=== PATIENT | female | born 1940 | race Caucasian/White ===

== ENCOUNTER 2019-05-27 12:33 | Outpatient (CLI) | payer MEDICARE, OTHER ==
--- NOTE | 2019-05-27 13:38 | BD ---
EXAM: DEXA bone density examination HISTORY: 78-year-old postmenopausal female for screening COMPARISON: None FINDINGS: L1--bone mineral density 0.780 g/sq cm; T score -1.9 L2--bone mineral density 0.775 g/sq cm; T score -2.3 L3--bone mineral density 0.912 g/sq cm; T score -1.6 L4--bone mineral density 0.946 g/sq cm; T score -1.0 Total L1-L4--bone mineral density 0.857 g/sq cm; T score -1.7 Left femoral neck--bone mineral density0.483; T score -3.3 Total proximal left femur--bone mineral density 0.609; T score -2.7 IMPRESSION: Osteoporosis
--- NOTE | 2019-06-02 09:32 | MMO ---
Bilateral MAMMO Bilat Screen [facility]. CLINICAL HISTORY: Patient is 78 years old and is seen for screening. The patient has no family history of breast cancer. The patient has no personal history of cancer. VIEWS: The views performed were: bilateral craniocaudal with tomosynthesis and bilateral mediolateral oblique with tomosynthesis. FILMS COMPARED: The present examination has been compared to prior imaging studies performed at [facility] on 10/07/2014, 05/16/2016 and 05/20/2018. MAMMOGRAM FINDINGS: There are scattered fibroglandular densities. There are benign appearing calcifications seen in the left breast. There are no suspicious masses, suspicious calcifications, or new areas of architectural distortion. IMPRESSION: THERE IS NO MAMMOGRAPHIC EVIDENCE OF MALIGNANCY. A ROUTINE FOLLOW-UP MAMMOGRAM IN 1 YEAR IS RECOMMENDED. THE RESULTS OF THIS EXAM WERE SENT TO THE PATIENT. ACR BI-RADS Category 2 - Benign finding MAMMOGRAPHY NOTE: 1. A negative mammogram report should not delay a biopsy if a dominant of clinically suspicious mass is present. 2. Approximately 10% to 15% of breast cancers are not detected by mammography. 3. Adenosis and dense breasts may obscure an underlying neoplasm. Reported by: LUIS ALBERTO ARMENDARIZ MD Electonically Signed: [id number]
== END 2019-05-27 12:34 | disposition home or self-care (01) ==
LOC: BICMAMMO 12:33
PROVIDERS: ATTEND Internal Medicine
DX: Z12.31 Encounter for screening mammogram for malignant neoplasm of breast (principal); M85.80 Other specified disorders of bone density and structure, unspecified site; M81.0 Age-related osteoporosis without current pathological fracture
CPT/HCPCS: 77063; 77067; 77080

== ENCOUNTER 2019-08-26 08:42 | Outpatient (CLI) | payer MEDICARE, OTHER ==
--- NOTE | 2019-08-27 15:22 | CT ---
CT OF THE CHEST, ABDOMEN AND PELVIS WITH IV CONTRAST INDICATION: History of lymphoma COMPARISON: CT of the chest, abdomen and pelvis from [facility] dated February 05, 2019. The report from the study was unavailable. FINDINGS: Patient respiratory motion artifact slightly limits image detail. CHEST: Lungs: There is scattered moderate emphysema. There are areas of mild scarring or persistent subsegme ntal volume loss within the right middle lobe. No suspicious pulmonary nodule is demonstrated. Pleural space: No effusion. Mediastinum: There is contrast seen within the distal esophagus. There is a small hiatal hernia. 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 There coronary artery and thoracic aortic calcifications. No pathologically enlarged lymph nodes are seen within the mediastinu m or hilar regions. Axilla: No pathologically enlarged lymph nodes. ABDOMEN: Liver: No focal lesion. Gallbladder: Normal appearing. Pancreas: Normal. Adrenal glands: Normal. Spleen: Normal. The spleen measures 9.3 cm. Kidneys and ureters: Normal. No hydronephrosis. Vasculature: There are severe vascular calcifications seen involving the visualized vasculature. Lymph nodes:No lymphadenopathy. Free fluid in abdomen:No free fluid is evident. PELVIS: Small and large bowel: There is a moderate amount retained stool within the colon. Small bowel is nor mal in caliber. Appendix:Normal Bladder: Normal. Rectal and perirectal soft tissues:Normal. Reproductive structures: Normal. Free fluid in pelvis: No free fluid is evident. Lymphadenopathy pelvis: No lymphadenopathy is evident. Osseous structures: There is healed fracture deformity involving the right pubic body. There there is stable chronic wedge compression fracture of L1. The central endplate compression abnormalities of L4 and L3 appear similar. There is a new interval, age indeterminate moderate wedge compression fract ure of T11 with approximately 50% loss of height. There is moderate internal trabecular sclerosis within the fracture which may reflect some healing. There is scattered degenerative and osteoarthrit ic changes. Thoracolumbar scoliotic curvature is similar appearing. Soft tissues:Normal. IMPRESSION: 1. No pathologically enlarged lymph nodes or splenomegaly identified. 2. Interval moderate wedge compression fracture of T11. Stable chronic compression abnormalities of L 1, L3 and L4. 3. Stable emphysema. 4. Enteric contrast within the esophagus can be seen with reflux or esophageal dysmotility. There is a small hiatal hernia.
== END 2019-08-26 08:43 | disposition home or self-care (01) ==
LOC: SCSCT 08:42
PROVIDERS: ATTEND Internal Medicine Hematology & Oncology
DX: C83.09 Small cell B-cell lymphoma, extranodal and solid organ sites (principal); J43.9 Emphysema, unspecified; K44.9 Diaphragmatic hernia without obstruction or gangrene; S22.080A Wedge compression fracture of T11-T12 vertebra, initial encounter for closed fracture; R93.7 Abnormal findings on diagnostic imaging of other parts of musculoskeletal system
CPT/HCPCS: 71260; 74177; 82565

== ENCOUNTER 2020-06-02 10:01 | Outpatient (CLI) | payer MEDICARE, OTHER ==
--- NOTE | 2020-06-02 13:12 | MMO ---
Bilateral MAMMO Bilat Screen [facility]. CLINICAL HISTORY: Patient is 79 years old and is seen for screening. The patient has no family history of breast cancer. The patient has no personal history of cancer. VIEWS: The views performed were: bilateral craniocaudal with tomosynthesis and bilateral mediolateral oblique with tomosynthesis. FILMS COMPARED: The present examination has been compared to prior imaging studies performed at [facility] on 05/27/2019, and at [facility] on 10/07/2014, 05/16/2016 and 05/20/2018. This study has been interpreted with the assistance of computer-aided detection. MAMMOGRAM FINDINGS: There are scattered fibroglandular densities. There are no suspicious masses, suspicious calcifications, or new areas of architectural distortion. IMPRESSION: THERE IS NO MAMMOGRAPHIC EVIDENCE OF MALIGNANCY. A ROUTINE FOLLOW-UP MAMMOGRAM IN 1 YEAR IS RECOMMENDED. THE RESULTS OF THIS EXAM WERE SENT TO THE PATIENT. ACR BI-RADS Category 1 - Negative MAMMOGRAPHY NOTE: 1. A negative mammogram report should not delay a biopsy if a dominant of clinically suspicious mass is present. 2. Approximately 10% to 15% of breast cancers are not detected by mammography. 3. Adenosis and dense breasts may obscure an underlying neoplasm. Reported by: SRI LUTZ MD Electonically Signed: [id number]
== END 2020-06-02 10:02 | disposition home or self-care (01) ==
LOC: BICMAMMO 10:01
PROVIDERS: ATTEND Internal Medicine
DX: Z12.31 Encounter for screening mammogram for malignant neoplasm of breast (principal)
CPT/HCPCS: 77063; 77067

== ENCOUNTER 2020-09-05 09:00 | Outpatient (CLI) | payer MEDICARE, OTHER ==
[2020-09-05] MEDS ORDERED: Iopamidol-370 76% 500 ML 1 ML ONE (09:14)
--- NOTE | 2020-09-05 09:54 | CT ---
EXAM: CT chest, abdomen, and pelvis with IV contrast: HISTORY: Small B-cell lymphoma, extranodal solid organ sites. COMPARISON: 08/26/2019 FINDINGS: CT THORAX: Lungs: Mild biapical pleural parenchymal scarring is present. Scarring in the right middle lobe and l ateral aspect right lower lobe are again seen. Prominent bleb medial aspect right lung base is again seen. A 5 mm pulmonary nodule is seen in the left upper lobe. No additional pulmonary nodule or mass is seen in the lungs bilaterally. Pleura: No pleural effusion. Lymph nodes: No enlarged lymph nodes are seen by CT size criteria. Mediastinum: Vascular calcifications are again seen in the coronary arteries as well as in the thorac ic aorta. Small amount of contrast is seen within the esophagus which could be related to gastroesophageal reflux. There is suggestion of a small hiatal hernia. Persistent left-sided SVC is a gain seen entering into the coronary sinus. Chest wall: No abnormalities CT ABDOMEN AND PELVIS: Liver: Within normal limits. Gallbladder: Within normal limits. \ Pancreas: Within normal limits. Spleen: Within normal limits. Adrenal glands: Within normal limits. Kidneys: Scattered subcentimeter too small to characterize hypodense lesions are seen in each kidney. Urinary Bladder: Decompressed. Reproductive organs: Within normal limits for patient's age. Bowel: Small amount retained fecal material seen throughout the colon. Adenopathy:No enlarged lymph nodes are seen by CT size criteria. Peritoneum: No free fluid or fluid collection is seen. No free intraperitoneal gas is identified. Abdominal wall: No abnormalities seen. Osseous structures: Wedge-shaped compression fractures of the T11 and L1 vertebral bodies are again s een. Slight superior endplate compression deformity L4 vertebral body is again seen and stable. Grade 1 anterolisthesis of L4 on L5 is again seen. There is now evidence of a compression fracture involving the superior endplate of the L3 vertebral b robert which was not seen on prior exam. IMPRESSION: 1. Small 5 mm pulmonary nodule left upper lobe. Follow-up evaluation in 6 months is recommended. 2. Interval development of a superior endplate compression fracture L3 vertebral body. Stable macy fern fractures T11, L1, and L4 vertebral bodies are noted. 3. Contrast in the esophagus which may be related to esophageal reflux. There is a very small hiatal hernia. 4. No pathologically enlarged lymph nodes are seen in the chest, abdomen, or pelvis. There is no sple nomegaly
== END 2020-09-05 09:01 | disposition home or self-care (01) ==
LOC: BICCT 09:00
PROVIDERS: ATTEND Internal Medicine Hematology & Oncology
DX: C83.09 Small cell B-cell lymphoma, extranodal and solid organ sites (principal); R91.1 Solitary pulmonary nodule; M48.56XA Collapsed vertebra, not elsewhere classified, lumbar region, initial encounter for fracture; M48.54XA Collapsed vertebra, not elsewhere classified, thoracic region, initial encounter for fracture
CPT/HCPCS: 71260; 74177; 82565; Q9967

== ENCOUNTER 2021-03-14 11:45 | Outpatient (CLI) | payer MEDICARE, OTHER | END 2021-03-14 11:46 | disposition home or self-care (01) | LOC: PET 11:45 | PROVIDERS: ATTEND Internal Medicine Hematology & Oncology | DX: C83.09 Small cell B-cell lymphoma, extranodal and solid organ sites (principal); R91.1 Solitary pulmonary nodule | CPT/HCPCS: 78815; A9552 ==

== ENCOUNTER 2021-08-04 10:15 | Outpatient (CLI) | payer MEDICARE, OTHER | END 2021-08-04 10:16 | disposition home or self-care (01) | LOC: PET 10:15 | PROVIDERS: ATTEND Internal Medicine Hematology & Oncology | DX: C83.39 Diffuse large B-cell lymphoma, extranodal and solid organ sites (principal); R91.1 Solitary pulmonary nodule; M27.2 Inflammatory conditions of jaws | CPT/HCPCS: 78815; A9552 ==

== ENCOUNTER 2021-11-23 11:00 | Outpatient (CLI) | payer MEDICARE, OTHER | END 2021-11-23 11:01 | disposition home or self-care (01) | LOC: PET 11:00 | PROVIDERS: ATTEND Internal Medicine Hematology & Oncology | DX: C83.39 Diffuse large B-cell lymphoma, extranodal and solid organ sites (principal); R91.1 Solitary pulmonary nodule | CPT/HCPCS: 78815; A9552 ==

== ENCOUNTER 2022-03-29 11:00 | Outpatient (CLI) | payer MEDICARE, OTHER | END 2022-03-29 11:01 | disposition home or self-care (01) | LOC: PET 11:00 | PROVIDERS: ATTEND Internal Medicine Hematology & Oncology | DX: C83.09 Small cell B-cell lymphoma, extranodal and solid organ sites (principal); R91.8 Other nonspecific abnormal finding of lung field | CPT/HCPCS: 78815; A9552 ==

== ENCOUNTER → 2022-08-24 | Outpatient (CLI) | payer MEDICARE, OTHER | LOC: PET 08:45 | PROVIDERS: ATTEND Internal Medicine Hematology & Oncology | DX: C83.39 Diffuse large B-cell lymphoma, extranodal and solid organ sites (principal); C83.09 Small cell B-cell lymphoma, extranodal and solid organ sites; R91.1 Solitary pulmonary nodule; R91.8 Other nonspecific abnormal finding of lung field | CPT/HCPCS: 78815; A9552 ==

== ENCOUNTER 2023-01-01 10:15 | Outpatient (CLI) | payer MEDICARE, OTHER | END 2023-01-01 10:16 | disposition home or self-care (01) | LOC: PET 10:15 | PROVIDERS: ATTEND Internal Medicine Hematology & Oncology | DX: C83.09 Small cell B-cell lymphoma, extranodal and solid organ sites (principal); C83.39 Diffuse large B-cell lymphoma, extranodal and solid organ sites; R91.1 Solitary pulmonary nodule; M43.9 Deforming dorsopathy, unspecified | CPT/HCPCS: 78815; A9552 ==

== ENCOUNTER 2023-05-07 11:45 | Outpatient (CLI) | payer MEDICARE, OTHER | END 2023-05-07 11:46 | disposition home or self-care (01) | LOC: PET 11:45 | PROVIDERS: ATTEND Internal Medicine Hematology & Oncology | DX: R91.1 Solitary pulmonary nodule (principal); C83.09 Small cell B-cell lymphoma, extranodal and solid organ sites; C83.39 Diffuse large B-cell lymphoma, extranodal and solid organ sites | CPT/HCPCS: 78815; A9552 ==

== ENCOUNTER 2023-09-10 09:30 | Outpatient (CLI) | payer MEDICARE, OTHER | END 2023-09-10 09:31 | LOC: PET 09:30 | PROVIDERS: ATTEND Internal Medicine Hematology & Oncology | DX: C83.39 Diffuse large B-cell lymphoma, extranodal and solid organ sites (principal); C83.09 Small cell B-cell lymphoma, extranodal and solid organ sites; R91.1 Solitary pulmonary nodule; R94.8 Abnormal results of function studies of other organs and systems | CPT/HCPCS: 78815; A9552 ==

== ENCOUNTER 2024-06-26 09:30 | Outpatient (CLI) | payer MEDICARE, OTHER | END 2024-06-26 09:31 | disposition home or self-care (01) | LOC: PET 09:30 | PROVIDERS: ATTEND Internal Medicine Hematology & Oncology | DX: C83.09 Small cell B-cell lymphoma, extranodal and solid organ sites (principal); R91.1 Solitary pulmonary nodule; C83.398 Diffuse large B-cell lymphoma of other extranodal and solid organ sites; J98.4 Other disorders of lung | CPT/HCPCS: 78815; A9552 ==

== ENCOUNTER 2025-07-06 09:30 | Outpatient (CLI) | payer MEDICARE, OTHER | END 2025-07-06 09:31 | disposition home or self-care (01) | LOC: PET 09:30 | PROVIDERS: ATTEND Internal Medicine Hematology & Oncology | DX: C83.09 Small cell B-cell lymphoma, extranodal and solid organ sites (principal); C83.398 Diffuse large B-cell lymphoma of other extranodal and solid organ sites; R91.1 Solitary pulmonary nodule; J98.4 Other disorders of lung | CPT/HCPCS: 78815; A9552 ==